=== PATIENT | female | born 2000 | race Caucasian/White ===

== ENCOUNTER 2019-12-18 16:15 | Emergency (ER) | payer MEDICAID ==
[~2019-12-18] VITALS: Ht 162.6 cm; Wt 68.0 kg
[~2019-12-18 16:15] MED LIST: HYDR-3965 PO; IBUP-1984 PO; POLY17PO10 PO; ZOF4T PO
[2019-12-18 16:20] VITALS: BP 132/87
[2019-12-18] MEDS ORDERED: BENZ-16 PO (16:34)
[2019-12-18] MEDS ORDERED: ALBU8.5H8 IH (16:34)
== END 2019-12-18 16:45 | disposition home or self-care (01) ==
LOC: ER 16:15
DX: J98.01 Acute bronchospasm (principal); J45.909 Unspecified asthma, uncomplicated; Z87.440 Personal history of urinary (tract) infections; Z88.1 Allergy status to other antibiotic agents; Z79.899 Other long term (current) drug therapy
CPT/HCPCS: 99283

== ENCOUNTER 2023-04-19 14:52 | Emergency (ER) | payer MEDICAID ==
[~2023-04-19] VITALS: Ht 162.6 cm; Wt 68.2 kg
[~2023-04-19 14:52] MED LIST changes: +ALBU8.5H17 IH
[2023-04-19 15:00] VITALS: BP 130/80
[2023-04-19] MEDS ORDERED: SUMAtriptan 25 MG tablet PO ONE (15:55)
[2023-04-19] MEDS ORDERED: diazepam 5mg tablet PO ONE (15:55)
[2023-04-19] MEDS ORDERED: CYCL-1 PO (16:26)
[2023-04-19] MEDS ORDERED: FLUT16SP2 BOTHNARES (16:26)
[2023-04-19] MEDS ORDERED: SUMA100T16 PO (16:26)
== END 2023-04-19 17:03 | disposition home or self-care (01) ==
LOC: ER 14:52
DX: G43.909 Migraine, unspecified, not intractable, without status migrainosus (principal); J45.909 Unspecified asthma, uncomplicated; Z87.448 Personal history of other diseases of urinary system; Z88.1 Allergy status to other antibiotic agents; Z79.899 Other long term (current) drug therapy
CPT/HCPCS: 99283

== ENCOUNTER → 2024-05-22 | Outpatient (CLI) | payer MEDICAID ==
[~2024-05-22] MED LIST changes: +CYCL-1 PO; +FLUT16SP2 BOTHNARES; +SUMA100T16 PO
== END | disposition home or self-care (01) ==
LOC: RAD 09:17
PROVIDERS: ATTEND Nurse Practitioner Family
DX: R94.31 Abnormal electrocardiogram [ECG] [EKG] (principal); R56.9 Unspecified convulsions
CPT/HCPCS: 95816

== ENCOUNTER 2024-06-11 10:23 | Outpatient (CLI) | payer MEDICAID ==
[~2024-06-11 10:23] MED LIST changes: +GADOTERATE MEGLUMINE 7.5 MMOL/15 ML VIAL IV ONE
== END 2024-06-11 23:59 | disposition home or self-care (01) ==
LOC: MRI 10:23
PROVIDERS: ATTEND Nurse Practitioner Family
DX: R56.9 Unspecified convulsions (principal)
CPT/HCPCS: 70553; A9575

== ENCOUNTER 2025-06-24 07:45 | Emergency (ER) | payer MEDICAID ==
[~2025-06-24] VITALS: Ht 162.6 cm; Wt 67.0 kg
[~2025-06-24 07:45] MED LIST changes: -GADOTERATE MEGLUMINE 7.5 MMOL/15 ML VIAL IV ONE
--- NOTE | 2025-06-24 10:34 | Physician Documentation ---
History of Present Illness ~ Chief Complaint: Neck pain Stated Complaint: NECK PAIN Time Seen by MD: 10:18 Primary Medical Doctor: TREV LUCIANO [facility] This is a 24-year-old female who presents with a left-sided head and neck pain, patient describes pain as tension and pressure. Patient reports history of migraines and similar headaches that have responded well to Toradol. Additi onally reports nausea and sensitivity to light and loud noises. Patient reports no other acute symptoms or concerns including no fever. Medication Reconciliation Allergies: Coded Allergies: amoxicillin (Verified Adverse Reaction, Mild, gi, 11/17/13) clavulanic acid (Verified Adverse Reaction, Mild, gi, 11/17/13) Scheduled Cyclobenzaprine* (Cyclobenzaprine*), 1 TAB PO Q8H Fluticasone Propionate (Flonase), 2 SPRAYS BOTHNARES DAILY Ibuprofen (Ibuprofen), 1 TAB PO Q8H Ibuprofen* (Motrin*), 600 MG PO Q6H, (Reported) Ondansetron ODT* (Zofran ODT*), 8 MG PO Q6H Polyethylene Glycol 3350* (Miralax*), 17 GM PO DAILY Sumatriptan Succinate (Sumatriptan Succinate), 1 TAB PO UD Scheduled PRN Albuterol Sulfate (Proair Hfa), 2 PUFFS IH Q6H PRN for SOB or wheezing Hydrocodone Bit/Acetaminophen 5/325 MG ([place] 5/325 MG), 1 TAB PO Q6H PRN for pain, (Reported) ONDANSETRON ODT 4mg tablet (Ondansetron Odt), 1 TAB PO Q6H PRN PRN for nausea/vomiting Past Medical History Past Medical History: Headache, Migraine, Asthma, UTI, *MUSCULOSKELETAL* Past Surgical History: no surgical history Alcohol Use: None Drug Use: none Lives with: Mother, Family Lives In: Home Occupation: student, child Review of Systems ROS As stated above in the HPI, otherwise all systems are reviewed and negative. Physical Exam Vital Signs: Temperature: 98.0, Source: Oral, Heart Rate: 76, Respiratory Rate: 16, BP: 116/77, Pulse Oximetry: 100, Weight: 67.000 Oxygen Flow Rate: 0 Physical Exam VITALS: Reviewed and as above. GENERAL: Alert, nontoxic appearing, no apparent distress. HEENT: PERRLA, EOMI, no cervical lymphadenopathy, no meningeal signs, left posterolateral neck tension in tenderness RESPIRATORY: No increased work of breathing, no respiratory distress, speaking in full clear sentences CV: Regular rate and rhythm no murmur NEURO: GCS 15, oriented x4 Progress Results/Orders Results/Orders Completed Orders - CHASE RAMOS [employer] Lidocaine 5% Patch (Lidoderm 5% Patch) (06/24/25 10:35) Ketorolac Trometh 15mg/Ml Vial (Toradol (06/24/25 10:35) Diphenhydramine Inj (Benadryl Inj.) (06/24/25 10:35) Prochlorperazine Inj (Compazine Inj) (06/24/25 10:35) Diphenhydramine Inj (Benadryl Inj.) (06/24/25 11:15) Ketorolac Trometh 15mg/Ml Vial (Toradol (06/24/25 11:15) Vital Signs 06/24/25 06/24/25 06/24/25 06/24/25 07:48 08:41 11:25 12:05 Temp 98.0 98.0 98.0 98.0 Pulse 87 76 52 56 Resp 15 16 16 16 B/P (MAP) 114/70 116/77 (90) 100/67 (78) 104/72 Pulse Ox 100 100 100 100 O2 Flow Rate 0 0 0 Medical Decision Making Findings This 24-year-old female presented with head and neck pain, given patient's history of migraines and description of similar headache symptoms consistent with migraine or tension-type headache. It is reassuring this is not patient's 1st headache, headache is not of different cared her from previous headaches, headache was not sudden onset, was not described as worst of life, not associated with syncope, is not exertionally aggravated, not the result of significant trauma, does not have meningeal signs, patient does not have persistent vomiting, patient is not ill-appearing, not associated with fever, and patient does not have focal neural deficits. Patient was treated with Toradol, Compazine, Benadryl and IV fluids which she responded well to reporting significant improvement in symptoms. Patient is otherwise well-appearing with remainder of physical exam benign, vital signs stable and patient is appropriate for outpatient follow up. Patient provided home care instructions, return to care precautions, and follow up instructions which she verbalized understanding of. Patient had safe right home with a friend as she received medications that cause drowsiness. Differential Dx:Considerations: Include: LACKEY-Cluster, LACKEY-Migraine, LACKEY- Hypertensive, LACKEY-Muscular contraction, LACKEY-Post lumbar puncture, Close head injuyr, CVA, Fever induced, Hemorrhage-Epidural, Hemorrhage-Intracerebral, Hemorrhage-Subarachnoid, Hemorrhage-Subdural, Mass lesion, Meningitis, Post-traumtic, Pseudotumor cerebri, Sinusitis, Temporal arteritis, Trigeminal neuralgia Departure Time of Disposition: 12:04 Disposition: 01 HOME / SELF CARE / HOMELESS Impression: Primary Impression: Neck pain Additional Impression: Head ache Qualified Codes: R51.9 - Headache, unspecified Condition: Improved Discharge Instructions: Migraine Headache Additional Instructions: Please do not drive for the influence with the medications we gave you as a cause severe drowsiness pain you may take ibuprofen and or Tylenol as needed for minor headache symptoms. Please follow up with your primary care provider in the next few days. Please return to the emergency department for any new or worsening concerning symptoms including but not limited to severe headache, confusion or persistent vomiting. Referrals: NO PRIMARY CARE PROVIDER (PCP) Prescriptions Ibuprofen (Ibuprofen) 800 Mg Tablet 1 TAB PO Q8H for pain for 10 Days, #30 TAB 0 Refills Prov: CHASE RAMOS 06/24/25 ONDANSETRON ODT 4mg tablet (ONDANSETRON ODT) 4 Mg Tab.rapdis 1 TAB PO Q6H PRN PRN for nausea/vomiting for 4 Days, #16 TAB 0 Refills Prov: CHASE RAMOS 06/24/25 Education Educated: Patient Educated regarding: diagnosis, treatment, prognosis, need for follow up Signature Scribe Signature: No scribe Attestation: The note accurately reflects work and decisions made by me.NISHA Mendez 06/24/25 21:05 CHASE RAMOS Jun 24, 2025 10:34
[2025-06-24] MEDS: ketorolac trometh 15mg/ml vial 15 MG/ML ML IM ONE (11:14)
[2025-06-24] MEDS: ketorolac trometh 15mg/ml vial 15 MG/ML ML IV ONE (11:16)
[2025-06-24] MEDS: normal saline 1000ml 1,000 ML IV ONE (11:23)
[2025-06-24] MEDS ORDERED: ONDA-243 PO (12:04)
[2025-06-24] MEDS ORDERED: IBUP-1986 PO (12:04)
[2025-06-24 12:05] VITALS: BP 104/72; PULSE 56; RESP 16; TEMP 98; O2SAT 100
== END 2025-06-24 12:11 | disposition home or self-care (01) ==
LOC: ER 07:46
DX: R51.9 Headache, unspecified (principal); M54.2 Cervicalgia; R11.0 Nausea; J45.909 Unspecified asthma, uncomplicated; Z87.440 Personal history of urinary (tract) infections; Z88.0 Allergy status to penicillin
CPT/HCPCS: 96361; 96372; 96374; 96375; 99284; J0780; J1200; J1885; J7030